=== PATIENT | female | born 1995 | race Caucasian/White ===

== ENCOUNTER 2016-11-29 10:26 | Emergency (ER) | payer BC ==
--- NOTE | 2016-11-29 12:42 | UC ---
Respiratory Complaint HPI - HPI Summary HPI Summary: PATIENT IS AN OTHERWISE HEALTHY 21YO F WHO PRESENTS TODAY WITH CC OF SORE THROAT , SCHAEFER AND BODY ACHES. PATIENT STATES ON SUNDAY SHE AWOKE WITH SORE THROAT, THEN YESTERDAY HAD A HEADACHE AND FELT LIGHT HEADED. DEVELOPED A FEVER AT AROUND 7: 00PM. HAD A FEVER OF 102.0 F AT 0600. TOOK 1 TAB ES TYLENOL. BILATERAL EAR PAIN WELL. 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 FLU SYMPTOMS HAVE CONTINUALLY BECOME WORSE SINCE 2 DAYS AGO. NOTHING MAKES HER SYMPTOMS BETTER OR WORSE AND SHE HAS ONLY TRIED TYLENOL FOR RELIEF. - History of Current Complaint Chief Complaint: UCRespiratory Stated Complaint: EAR PAIN, FEVER Time Seen by Provider: 11/29/16 12:40 Hx Obtained From: Patient Hx Last Menstrual Period: ON BCP. LAST PERIOD WAS 1 MONTH AGO ?: No Onset/Duration: Sudden Onset Timing: Constant Severity Initially: Mild Severity Currently: Mild Pain Intensity: 5 Pain Scale Used: 0-10 Numeric Character: Cough: Nonproductive Aggravating Factors: Deep Breaths, Recumbent Position Alleviating Factors: Upright Position Associated Signs And Symptoms: Positive: Fever, Chills, Pleuritic Chest Pain, URI, Nasal Congestion, Sinus Discomfort - Risk Factors Pulmonary Embolism Risk Factors: Negative Cardiac Risk Factors: Negative Pseudomonas Risk Factors: Negative Tuberculosis Risk Factors: Negative - Allergies/Home Medications Allergies/Adverse Reactions: Allergies Allergy/AdvReac Type Severity Reaction Status Date / Time No Known Allergies Allergy Verified 11/29/16 12:04 Home Medications: Home Medications Acetaminophen [Acetaminophen Extra Stren] 1 tab PO TID PRN 11/29/16 [History Confirmed 11/29/16] PMH/Surg Hx/FS Hx/Imm Hx Previously Healthy: Yes Endocrine History Of: Denies: Diabetes, Thyroid Disease Cardiovascular History Of: Denies: Cardiac Disorders, Hypertension Respiratory History Of: Denies: COPD, Asthma GI/ History Of: Denies: Ulcer - Surgical History Surgical History: None - Family History Known Family History: Positive: None Family History: NON CONTRIBUTORY - Social History Occupation: Employed Full-time Lives: With Family Alcohol Use: Occasionally Substance Use Type: None Smoking Status (MU): Never Smoked Tobacco - Immunization History Most Recent Influenza Vaccination: NOT THIS YEAR Review of Systems Constitutional: Fever, Chills, Fatigue Skin: Negative ENT: Sore Throat, Ear Ache, Nasal Discharge Respiratory: Shortness Of Breath, Cough Genitourinary: Negative Motor: Negative Neurovascular: Negative Musculoskeletal: Myalgia Neurological: Headache Psychological: Negative All Other Systems Reviewed And Are Negative: Yes Physical Exam Triage Information Reviewed: Yes Appearance: Well-Appearing, No Pain Distress, Well-Nourished Vital Signs: Initial Vital Signs Temp 99.6 F 11/29/16 12:06 Pulse 132 11/29/16 12:06 Resp 18 11/29/16 12:06 BP 127/68 11/29/16 12:06 Pulse Ox 99 11/29/16 12:06 Vital Signs Reviewed: Yes Eye Exam: Normal Eyes: Positive: Conjunctiva Clear ENT: Positive: Pharynx normal Neck exam: Normal Neck: Positive: Supple, Nontender Respiratory Exam: Normal Respiratory: Positive: Chest non-tender Cardiovascular Exam: Normal Cardiovascular: Positive: RRR Musculoskeletal Exam: Normal Musculoskeletal: Positive: Strength Intact Neurological Exam: Normal Neurological: Positive: Alert Psychological: Positive: Normal Response To Family Skin Exam: Normal UC Diagnostic Evaluation - Laboratory O2 Sat by Pulse Oximetry: 99 Respiratory Course/Dx - Course Course Of Treatment: STREP NEGATIVE. FLU WAS NOT RUN. I EXPLAINED TO PATIENT IT WOULD NOT CHANGE THE COURSE OF TREATMENT D/T LENGTH OF SYMPTOMS. SHE AGREES AND WOULD JUST LIKE A NOTE FOR WORK. NOTE GIVEN FOR 2 DAYS OFF AND RETURN ON SUNDAY. PATIENT STABLE AND OK FOR DISCHARGE. - Differential Dx/Diagnosis Differential Diagnosis/HQI/PQRI: Asthma, Bronchitis, Lower Resp Infection, Sinusitis Provider Diagnoses: VIRAL ILLNESS Discharge - Discharge Plan Condition: Stable Disposition: HOME Patient Education Materials: Viral Syndrome (ED) Forms: *Work Release Referrals: No Primary Care Phys,NOPCP [Primary Care Provider] - Additional Instructions: Drink plenty of fluids. A humidifier in the home can help with congestion during the colder months. If your symptoms fail to improve or worsen, please call your primary care provider, come back to urgent care or the emergency room. Rest. Fluids. Tylenol for temps > 100.5
[2016-11-29 13:40] VITALS: BP 130/66
== END 2016-11-29 13:31 | disposition home or self-care (01) ==
LOC: UCEAST 10:26
DX: J02.9 Acute pharyngitis, unspecified (principal); R51 Headache; R52 Pain, unspecified; R50.9 Fever, unspecified; R42 Dizziness and giddiness
CPT/HCPCS: 87651; 99211; G0463

== ENCOUNTER 2016-12-02 13:00 | Emergency (ER) | payer BC ==
[2016-12-02 13:13] VITALS: BP 118/78
--- NOTE | 2016-12-02 13:24 | UC ---
General HPI - HPI Summary HPI Summary: Patient was seen 3 days ago for ear pain and fever. Was given a note to stay homr from work, is here to have a note stating she is ok to return to work. - History of Current Complaint Chief Complaint: UCMedRefill Stated Complaint: RET'N TO [facility] NOTE Time Seen by Provider: 12/02/16 13:03 Hx Obtained From: Patient Onset/Duration: Sudden Onset, Lasting Days Current Severity: None - Allergy/Home Medications Allergies/Adverse Reactions: Allergies Allergy/AdvReac Type Severity Reaction Status Date / Time No Known Allergies Allergy Verified 11/29/16 12:04 PMH/Surg Hx/FS Hx/Imm Hx Previously Healthy: Yes Endocrine History Of: Denies: Diabetes, Thyroid Disease Cardiovascular History Of: Denies: Cardiac Disorders, Hypertension Respiratory History Of: Denies: COPD, Asthma GI/ History Of: Denies: Ulcer - Surgical History Surgical History: None - Family History Known Family History: Positive: None Family History: NON CONTRIBUTORY - Social History Alcohol Use: Occasionally Substance Use Type: None Smoking Status (MU): Never Smoked Tobacco - Immunization History Most Recent Influenza Vaccination: NOT THIS YEAR Review of Systems Constitutional: Negative Skin: Negative Eyes: Negative ENT: Negative Respiratory: Negative Cardiovascular: Negative Gastrointestinal: Negative Genitourinary: Negative Motor: Negative Neurovascular: Negative Musculoskeletal: Negative Neurological: Negative Psychological: Negative All Other Systems Reviewed And Are Negative: Yes Physical Exam Triage Information Reviewed: Yes Appearance: Well-Appearing, No Pain Distress, Well-Nourished Vital Signs: Initial Vital Signs Temp 97.8 F 12/02/16 13:08 Pulse 88 12/02/16 13:08 Resp 16 12/02/16 13:08 BP 118/78 12/02/16 13:08 Pulse Ox 96 12/02/16 13:08 Vital Signs Reviewed: Yes Eye Exam: Normal Eyes: Positive: Conjunctiva Clear ENT: Positive: Hearing grossly normal, Pharynx normal, TM red Dental Exam: Normal Neck exam: Normal Neck: Positive: Supple, Nontender, No Lymphadenopathy Respiratory Exam: Normal Respiratory: Positive: Chest non-tender, Lungs clear, Normal breath sounds Cardiovascular Exam: Normal Cardiovascular: Positive: RRR, No Murmur, Pulses Normal Abdominal Exam: Normal Abdomen Description: Positive: Nontender, No Organomegaly, Soft Bowel Sounds: Positive: Present Musculoskeletal Exam: Normal Musculoskeletal: Positive: Strength Intact, ROM Intact, No Edema Neurological Exam: Normal Neurological: Positive: Alert Psychological Exam: Normal Skin Exam: Normal Course/Dx - Course Course Of Treatment: hx obtained, exam performed, meds reveiwed and notes freveiwed from last visit. return to work paperwork filled out for job facility - Differential Dx - Multi-Symptom Provider Diagnoses: ear infection follow up Discharge - Discharge Plan Condition: Stable Disposition: HOME Forms: *Work Release Referrals: No Primary Care Phys,NOPCP [Primary Care Provider] - Additional Instructions: FOllow up with any residual symptoms
== END 2016-12-02 13:40 | disposition home or self-care (01) ==
LOC: UCEAST 13:00
DX: H66.90 Otitis media, unspecified, unspecified ear (principal)
CPT/HCPCS: 99211; G0463

== ENCOUNTER 2017-01-31 20:11 | Emergency (ER) | payer BC ==
--- NOTE | 2017-01-31 21:28 | RAD ---
INDICATION: Head injury. COMPARISON: There are no prior studies available for comparison. TECHNIQUE: Contiguous axial sections of the brain were obtained from the skull base to the vertex without contrast. FINDINGS: There is asymmetry in the lateral ventricles and a prominent cisterna magna most consistent with normal variation. There is a CSF density lesion present at the left temporal lobe tip measuring 3.9 x 2.7 cm in size most consistent with an arachnoid cyst. No other focal abnormalities or mass effect are seen. There is no evidence for hemorrhage. No significant focal osseous abnormality is seen. The visualized portion of the paranasal sinuses and mastoid air cells appear clear. IMPRESSION: 1. NO EVIDENCE FOR ACUTE INTRACRANIAL ABNORMALITY. 2. ARACHNOID CYST AT THE LEFT TEMPORAL LOBE TIP.
--- NOTE | 2017-01-31 21:59 | ED ---
Head Injury - HPI Summary HPI Summary: 21F presents with head injury today. She was working out when she slipped backwards and hit her head on the wall. She admits to posterior head pain and neck pain. She says she may have LOC. She admits to nausea but denies any vomiting. She denies any visual changes. She is more tired than normal. She had a head injury two months ago that she never followed up on. She denies any history of migraines. - History Of Current Complaint Chief Complaint: EDHeadInjury Stated Complaint: FALL/HEAD INJURY,HEAD AND NECK PAIN Time Seen by Provider: 01/31/17 20:45 Hx Last Menstrual Period: ON BCP. LAST PERIOD WAS 1 MONTH AGO Pain Intensity: 5 - Allergies/Home Medications Allergies/Adverse Reactions: Allergies Allergy/AdvReac Type Severity Reaction Status Date / Time No Known Allergies Allergy Verified 11/29/16 12:04 PMH/Surg Hx/FS Hx/Imm Hx Endocrine/Hematology History: Denies: Hx Diabetes, Hx Thyroid Disease Cardiovascular History: Denies: Hx Hypertension Respiratory History: Denies: Hx Asthma, Hx Chronic Obstructive Pulmonary Disease (COPD) GI History: Denies: Hx Ulcer Infectious Disease History: No Infectious Disease History: Denies: Hx Clostridium Difficile, Hx Hepatitis, Hx Human Immunodeficiency Virus (HIV), Hx of Known/Suspected MRSA, Hx Shingles, Hx Tuberculosis, Hx Known/ Suspected VRE, Hx Known/Suspected VRSA, History Other Infectious Disease, Traveled Outside the in Last 30 Days - Family History Known Family History: Positive: None, Other - migraines Family History: NON CONTRIBUTORY - Social History Alcohol Use: Occasionally Substance Use Type: Reports: None Smoking Status (MU): Never Smoked Tobacco Review of Systems Negative: Fever Negative: Chest Pain Negative: Shortness Of Breath Positive: Nausea. Negative: Vomiting Positive: Headache All Other Systems Reviewed And Are Negative: Yes Physical Exam Triage Information Reviewed: Yes Vital Signs On Initial Exam: Initial Vitals Temp Pulse Resp BP Pulse Ox 96.4 F 88 18 140/74 100 01/31/17 20:26 01/31/17 20:26 01/31/17 20:26 01/31/17 20:26 01/31/17 20:26 Vital Signs Reviewed: Yes Appearance: Positive: Well-Appearing Skin: Positive: Warm, Dry Head/Face: Positive: Normal Head/Face Inspection, Other - no step off, raccoon eyes, figueroa sign Eyes: Positive: Normal, EOMI, TAYLOR, Conjunctiva Clear ENT: Positive: Normal ENT inspection, Pharynx normal, TMs normal Respiratory/Lung Sounds: Positive: Clear to Auscultation, Breath Sounds Present Cardiovascular: Positive: Normal, RRR Neurological: Positive: Sensory/Motor Intact, Alert, Oriented to Person Place, Time, CN Intact II-III, Finger to Nose - Hartline Coma Scale Best Eye Response: 4 - Spontaneous Best Motor Response: 6 - Obeys Commands Best Verbal Response: 5 - Oriented Coma Scale Total: 15 Diagnostics - Vital Signs Vital Signs Temp Pulse Resp BP Pulse Ox 01/31/17 20:47 96.4 F 82 18 138/74 99 01/31/17 20:26 96.4 F 88 18 140/74 100 - Laboratory Lab Statement: Any lab studies that have been ordered have been reviewed, and results considered in the medical decision making process. - CT brain CT Interpretation: No Acute Changes - IMPRESSION: 1. NO EVIDENCE FOR ACUTE INTRACRANIAL ABNORMALITY. 2. ARACHNOID CYST AT THE LEFT TEMPORAL LOBE TIP. CT Interpretation Completed By: Radiologist Head Injury Course/Dx Course Of Treatment: 21F presents with head injury today s/p falling backwards into a wall. She had unknown LOC. she is nausous but she denies any vomiting. normal neuro exam. discussed with mom and patient and would like a CT of head. neck nontender midline. tender left side of neck. CT head no acute trauma. gave zofran for nausea. patient understands and agrees with plan - Diagnoses Differential Diagnosis/HQI/PQRI: Concussion With LOC, Concussion Without LOC, Contusion, Intracranial Bleed Provider Diagnoses: Head injury Discharge - Discharge Plan Condition: Good Disposition: HOME Prescriptions: Ondansetron ODT TAB* [Zofran 4 MG Odt TAB*] 4 mg PO Q6H PRN #10 tab.odt PRN Reason: Nausea Patient Education Materials: Head Injury (ED) Referrals: Rhianna Jamison MD [Primary Care Provider] - Additional Instructions: Place ice on area as needed Take Tylenol or ibuprofen for headache every 6 hours Modify activities as tolerated Follow up with primary within 7 days Return to ED if develop vomiting, severe headache, change in behavior, or any new or worsening symptoms
[2017-01-31] MEDS ORDERED: Ondansetron ODT TAB* 4 MG PO ONE (22:22)
[2017-01-31 22:29] VITALS: BP 132/70
== END 2017-01-31 22:28 | disposition home or self-care (01) ==
LOC: ED 20:11
DX: S09.90XA Unspecified injury of head, initial encounter (principal); W19.XXXA Unspecified fall, initial encounter; Y93.9 Activity, unspecified; Y92.9 Unspecified place or not applicable; G93.0 Cerebral cysts
CPT/HCPCS: 70450; 99282; A9270-GY

== ENCOUNTER 2017-09-16 11:17 | Emergency (ER) | payer BC ==
[2017-09-16 13:11] VITALS: BP 142/77
[2017-09-16] MEDS ORDERED: Ibuprofen TAB* 600 MG PO ONE (13:48)
--- NOTE | 2017-09-16 14:28 | UC ---
Steve Perez Stephanie, scribed for Oscar Montgomery MD on 09/16/17 at 1417 . Respiratory Complaint HPI - HPI Summary HPI Summary: The pt is a 22 y/o F presenting to with c/o sinus pressure that began this yesterday morning upon waking up. Symptoms include body aches in the back and lower extremity, nasal congestion with clear mucus, cough and ear pain. The pt reports having a fever on 09/13/17, feeling better on 09/14/17, but having sinus pressure on 09/15/17. The pt denies wheezing, present sinus issues and present fever. The pt attempted to treat with Mucinex but had no relief. - History of Current Complaint Chief Complaint: UCRespiratory Stated Complaint: SINUS ISSUE Time Seen by Provider: 09/16/17 13:43 Hx Obtained From: Patient Hx Last Menstrual Period: 09/11/17 Timing: Constant Severity Currently: Moderate Pain Intensity: 7 Pain Scale Used: 0-10 Numeric Character: Cough: Nonproductive Aggravating Factors: Nothing Alleviating Factors: Nothing Associated Signs And Symptoms: Positive: Nasal Congestion, Sinus Discomfort. Negative: Fever - Allergies/Home Medications Allergies/Adverse Reactions: Allergies Allergy/AdvReac Type Severity Reaction Status Date / Time No Known Allergies Allergy Verified 09/16/17 13:09 PMH/Surg Hx/FS Hx/Imm Hx Previously Healthy: Yes - Denies prior medical history. - Surgical History Surgical History: None - Family History Known Family History: Positive: Other - migraines Family History: NON CONTRIBUTORY - Social History Occupation: Employed Part-time Lives: Alone Alcohol Use: Weekly Substance Use Type: None Smoking Status (MU): Never Smoked Tobacco - Immunization History Most Recent Influenza Vaccination: NOT THIS YEAR Review of Systems Constitutional: Negative Skin: Negative Eyes: Negative ENT: Ear Ache, Nasal Discharge - clear mucus, Sinus Congestion, Sinus Pain/ Tenderness Respiratory: Cough Cardiovascular: Negative Gastrointestinal: Negative Genitourinary: Negative Motor: Negative Neurovascular: Negative Musculoskeletal: Myalgia - back and lower extremity Neurological: Negative Psychological: Negative All Other Systems Reviewed And Are Negative: Yes Physical Exam Triage Information Reviewed: Yes Vital Signs: Initial Vital Signs Temp 98.3 F 09/16/17 13:03 Pulse 117 09/16/17 13:03 Resp 14 09/16/17 13:03 BP 142/77 09/16/17 13:03 Pulse Ox 100 09/16/17 13:03 Vital Signs Reviewed: Yes - Additional Comments General: Mildly ill-appearing, mild pain distress Skin: warm, color reflects adequate perfusion, dry Head: normal Eyes: EOMI, TAYLOR ENT: normal, TM nml. Posterior pharynx positive erythema Neck: supple, Pos anterior cervical lymphadenopathy. Respiratory: CTA, breath sounds present Cardiovascular: RRR Abdomen: soft, nontender Bowel: present Musculoskeletal: normal, strength/ROM intact Neurological: normal, sensory/motor intact, A&O x3 Psychological: affect/mood appropriate Diagnostic Evaluation - Laboratory O2 Sat by Pulse Oximetry: 100 Respiratory Course/Dx - Course Course Of Treatment: Medications reviewed. - Differential Dx/Diagnosis Provider Diagnoses: INFLUENZA Discharge - Discharge Plan Condition: Stable Disposition: HOME Prescriptions: Oseltamivir CAP* [Tamiflu CAP*] 75 mg PO BID #10 cap Patient Education Materials: Influenza (ED) Forms: *Work Release Referrals: Rhianna Jamison MD [Primary Care Provider] - Additional Instructions: FOLLOW UP WITH YOUR DOCTOR. GET RECHECKED FOR ANY WORSENING OF YOUR CONDITION OR QUESTIONS OR CONCERNS. The documentation as recorded by the Steve trammell Stephanie accurately reflects the service I personally performed and the decisions made by me, Oscar Montgomery MD.
== END 2017-09-16 14:28 | disposition home or self-care (01) ==
LOC: UCEAST 11:17
DX: J11.1 Influenza due to unidentified influenza virus with other respiratory manifestations (principal)
CPT/HCPCS: 87502; 99212; A9270-GY; G0463

== ENCOUNTER 2019-01-30 15:38 | Inpatient (IN) | payer OTHER ==
[2019-01-30] MEDS ORDERED: Nalbuphine* 10 MG/ML 1 ML VIAL IV ONE (17:06)
[2019-01-30] MEDS ORDERED: Buffered Lidocaine 1% SYRIN* 1 ML/SYRINGE INTRADERM ONE (17:06)
[2019-01-30] MEDS ORDERED: Promethazine INJ(RESTRICTED)* 25 MG/ML 1 ML VIAL IV ONE (17:06)
[2019-01-30] MEDS ORDERED: Lactated Ringers 1000 ML Bag* 1,000 ML IV ONE ×2 (17:06→23:33)
--- NOTE | 2019-01-30 17:17 | HP ---
General Information - Reason for Visit Pt reports LOF and ctx since noon today. -VB, +FM. - General Information Maternal Age: 23 Grav: 1 Para: 0 SAB: 0 IEA: 0 Estimated Due Date: 01/26/19 Determined By: LMP Gestational Age in Weeks/Days: 40.4 Maternal Blood Type and Rh: O Positive - Results this Serology/RPR Result: Non-Reactive Rubella Result: Non-Immune HBsAg Result: Negative HIV Result: Negative GBS Culture Result: Negative Past Medical History Pertinent Past Medical History: See Records - scoliosis Pertinent Past Surgical History: None Pertinent Family History: See Records - high chol, CVD, DM, Bladder CA - Antepartal Records Antepartal Records: Reviewed, Complicated by: - anemia, BMI 30.6 Review of Systems Constitutional: Uncomfortable Respiratory: Shortness of Breath: No Gastrointestinal: No Nausea/Vomiting, Normal Bowel Movement Genitourinary: Leaking Fluid, No Dysuria, No Bleeding Musculoskeletal: Back Pain, Contractions, Pressure Neurological: No Headache, No Visual Changes Movement: Normal Exam Allergies/Adverse Reactions: Allergies No Known Allergies Allergy (Verified 01/30/19 16:36) T:98.5, P: 90, R:22, BP: 128/91, O2:100% Lab Values - Entire Visit: Laboratory Tests 01/30/19 16:00 Vag Amniotic Fld Detect Positive - Measurements Height: 5 ft 3 in Weight: 190 lb Weight in lbs: [phone] Body Mass Index (BMI): 33.6 Pre- Weight: 175 lb Weight Gained This : 15 lbs and 0 ozs - Exam Breast: Breast Exam Deferred CVA: No CVA Tenderness Extremities: No Edema Heart: Normal Rhythm/Heart Sounds HEENT: No Significant Findings Lungs: Clear Bilaterally Rectal: Rectal Exam Deferred Reflexes: DTR 2+ Thyroid: No Thyromegaly - Abdominal Exam Abdomen Exam: Non-Tender, Fundal Height Consistent with Dates - Ultrasound/Biophysical Profile Ultrasound Status: Not Done Targeted Exam Findings Estimated Weight: 7lbs 9oz Cervical Exam: 4cm Effacement: 90% Station: -1 Presenting Part: Vertex Membrane Status: Bulging - ROM plus positive Amniotic Fluid Evaluation: Positive ROM Plus Bleeding/Discharge: None EFM Findings - External Monitor Findings Baseline Heart Rate: 150 External Monitor Findings: Accelerations Present, No Pattern of Variable or Late Decelerations, Variability Moderate, Baseline Stable Contractions: Regular, Moderate, 45-90 Seconds Contraction Frequency: 5-6 Assessment/Plan - Assessment 23 y.o. , SROM, active labor - Plan Plan: Admit - Anticipate Vaginal Delivery - Date/Time of Admission Date of Admission: 01/30/19 Time of Admission: 15:00
[2019-01-30 17:41] LABS: ABS Basophils 0.1 10^3/ul (0-0.2); ABS Eosinophils 0.1 10^3/ul (0-0.6); ABS Lymphocytes 1.3 10^3/ul (1.0-4.8); ABS Monocytes 0.6 10^3/ul (0-0.8); ABS Neutrophils 7.7 10^3/ul (1.5-7.7); Eosinophil % 0.8 %; Hematocrit 38 % (35-47); Hemoglobin 12.8 g/dL (12.0-16.0); Lymphocyte % 13.6 %; Mean Corpuscular HGB Conc 34 g/dL (31-36); Mean Corpuscular Hemoglobin 30 pg (27-31); Mean Corpuscular Volume 87 fL (80-97); Mean Platelet Volume 10.6 fL (7.4-10.4); Nucleated Red Blood Cells % 0.1; Platelet Count 168 10^3/uL (150-450); Red Blood Count 4.33 10^6 /uL (3.70-4.87); Red Cell Distribution Width 16 % (10-15); White Blood Count 9.8 10^3/uL (3.5-10.8)
[2019-01-30] MEDS ORDERED: Lactated Ringers 1000 ML Bag* 1,000 ML IV SCH ×2 (18:00→23:45)
--- NOTE | 2019-01-30 20:49 | PN ---
Progress Note - Progress Note Date of Service: 01/30/19 SOAP: Subjective: Pt rested well with nubain and phenergan. Reports ctx further apart but still strong. Pt coping well but wants epidural. Objective: BP:113/61, P:75, R:18, T:99.1, FHR: 130bpm, + accels, -decels, moderate variability ctx q 5-8min. Cervix: 5.5/90/-1 AROM- thin meconium. Laboratory Tests 01/30/19 17:20 WBC 9.8 Hgb 12.8 Hct 38 Plt Count 168 Assessment: 23 y.o. , active labor 40w4d EGA Plan: 1) Anesthesia consult for epidural 2) Position changes for decent 3) Special care nurse notified of thin meconium
[2019-01-30] MEDS ORDERED: OBEPIDURAL* 250 ML EPIDURAL ONE (20:57)
[2019-01-30] MEDS ORDERED: Ondansetron ODT TAB* 4 MG SL PRN (21:51)
[2019-01-30] MEDS ORDERED: Ondansetron INJ* 2 MG/ML VIAL ONE (21:52)
[2019-01-30] MEDS ORDERED: Ondansetron ODT TAB* 4 MG ONE (21:55)
[2019-01-30] MEDS ORDERED: Phenylephrine 40 MCG/ML SYRINGE IV PUSH PRN ×2 (23:33)
[2019-01-30] MEDS ORDERED: Famotidine TAB* 20 MG PO PRN (23:33)
[2019-01-30] MEDS ORDERED: Sodium Citrate/Citric Acid* 15 ML UDC PO PRN (23:33)
[2019-01-30] MEDS ORDERED: Lactated Ringers 1000 ML Bag* 500 ML IV PRN ×2 (23:33)
[2019-01-30] MEDS ORDERED: OBEPIDURAL* 250 ML EPIDURAL SCH (23:45)
[2019-01-31] MEDS ORDERED: Glycerin ADULT SUPP PR PRN (00:16)
[2019-01-31] MEDS ORDERED: Acetaminophen TAB* 325 MG PO PRN (00:16)
[2019-01-31] MEDS ORDERED: fentaNYL* 50 MCG/ML 2 ML VIAL (100 MCG VIAL) ONE (00:19)
--- NOTE | 2019-01-31 00:20 | PROCNOTE ---
[facility] OB: Delivery Note - Delivery A Date of : 01/30/19 Time of : 23:54 Sex: Female Score 1 Minute: 8 Score 5 Minutes: 9 Gestational Age in Weeks and Days at Delivery: 40 Weeks and 4 Days Delivery Method: Spontaneous Vaginal Labor: Spontaneous Amniotic Fluid: Meconium Estimated Blood Loss: 200 Anesthesia/Analgesia: IM/IV, CEI for Labor Delivered By: Gaviota Hart - Nursery Level of Nursery: Regular/Bedside - Perineum Perineal Injury: Perineal Laceration, 1st Degree Perineal Repair: By Delivering Practioner - Events Delivery Events of Note Comment: Right nuchal arm
[2019-01-31] MEDS ORDERED: Lactated Ringers 1000 ML Bag* 1,000 ML IV SCH (01:00)
[2019-01-31] MEDS: Witch Hazel PAD* JAR TOPICAL PRN (04:24)
[2019-01-31] MEDS: Dibucaine 1% 28.35 GM TUBE PR PRN (04:24)
[2019-01-31] MEDS: Ibuprofen TAB* 600 MG PO PRN ×3 (04:43→20:13)
[2019-01-31] MEDS ORDERED: Simethicone TAB* 80 MG TAB.CHEW PO SCH (08:30)
[2019-01-31] MEDS: Docusate CAP* 100 MG PO SCH ×3 (10:15→20:14)
[2019-02-01] MEDS: Ibuprofen TAB* 600 MG PO PRN (06:15)
[2019-02-01 06:22] LABS: ABS Eosinophils 0.2 10^3/ul (0-0.6); ABS Lymphocytes 2.2 10^3/ul (1.0-4.8); ABS Monocytes 0.6 10^3/ul (0-0.8); ABS Neutrophils 6.3 10^3/ul (1.5-7.7); Eosinophil % 1.8 %; Hematocrit 37 % (35-47); Hemoglobin 12.3 g/dL (12.0-16.0); Lymphocyte % 23.5 %; Mean Corpuscular HGB Conc 34 g/dL (31-36); Mean Corpuscular Hemoglobin 30 pg (27-31); Mean Corpuscular Volume 88 fL (80-97); Mean Platelet Volume 10.6 fL (7.4-10.4); Platelet Count 156 10^3/uL (150-450); Red Blood Count 4.17 10^6 /uL (3.70-4.87); Red Cell Distribution Width 16 % (10-15); White Blood Count 9.2 10^3/uL (3.5-10.8)
[2019-02-01 08:35] VITALS: BP 105/65
[2019-02-01] MEDS ORDERED: Ferrous Gluconate TAB* 324 MG TAB PO SCH (09:00)
[2019-02-01] MEDS: Witch Hazel PAD* JAR TOPICAL PRN (09:04)
[2019-02-01] MEDS: Docusate CAP* 100 MG PO SCH (09:04)
[2019-02-01] MEDS: Dibucaine 1% 28.35 GM TUBE PR PRN (09:04)
[2019-02-01] MEDS ORDERED: Measles, Mumps,Rubella VACC* 0.5 ML/VIAL SUBCUT ONE (09:45)
== END 2019-02-01 12:05 | disposition home or self-care (01) | DRG 560 ==
LOC: MCHOBOUT 15:38 → MCHOB 16:27
PROVIDERS: ADMIT Midwife; ATTEND Midwife
PROC: 10E0XZZ Delivery of Products of Conception, External Approach (ICD-10-PCS; principal; 2019-01-30)
PROC: 0HQ9XZZ Repair Perineum Skin, External Approach (ICD-10-PCS; 2019-01-30)
DX: O48.0 Post-term pregnancy (principal); Z37.0 Single live birth; Z3A.40 40 weeks gestation of pregnancy; O70.0 First degree perineal laceration during delivery; O77.0 Labor and delivery complicated by meconium in amniotic fluid; O99.02 Anemia complicating childbirth; D64.9 Anemia, unspecified; O32.2XX0 Maternal care for transverse and oblique lie, not applicable or unspecified
CPT/HCPCS: 36415; 84112; 85025; 86850; 86900; 86901; A9270-GY; J2300; J2405; J2550; J3010

== ENCOUNTER 2019-03-27 18:30 | Emergency (ER) | payer OTHER ==
[2019-03-27 20:19] LABS: ABS Basophils 0.1 10^3/ul (0-0.2); ABS Eosinophils 0.1 10^3/ul (0-0.6); ABS Lymphocytes 1.5 10^3/ul (1.0-4.8); ABS Monocytes 0.7 10^3/ul (0-0.8); ABS Neutrophils 11.7 10^3/ul (1.5-7.7); Eosinophil % 0.7 %; Hematocrit 43 % (35-47); Hemoglobin 14.8 g/dL (12.0-16.0); Mean Corpuscular HGB Conc 34 g/dL (31-36); Mean Corpuscular Hemoglobin 30 pg (27-31); Mean Corpuscular Volume 87 fL (80-97); Mean Platelet Volume 10.6 fL (7.4-10.4); Nucleated Red Blood Cells % 0.1; Platelet Count 248 10^3/uL (150-450); Red Blood Count 4.97 10^6 /uL (3.70-4.87); Red Cell Distribution Width 13 % (10-15); White Blood Count 14.1 10^3/uL (3.5-10.8)
[2019-03-27 20:37] LABS: ALT 14 U/L (7-52); AST 19 U/L (13-39); Albumin 4.7 g/dL (3.2-5.2); Albumin/Globulin Ratio 1.5 (1-3); Alkaline Phosphatase 113 U/L (34-104); Anion Gap 8 mmol/L (2-11); BUN/Creatinine Ratio 26.5 (8-20); Blood Urea Nitrogen 18 mg/dL (6-24); C Reactive Protein 3.15 mg/L (<8.01); CO2 Carbon Dioxide 27 mmol/L (22-32); Calcium 9.8 mg/dL (8.6-10.3); Chloride 104 mmol/L (101-111); EGFR African American 127.6 (>60); EGFR Non-African American 105.4 (>60); Globulin 3.2 g/dL (2-4); Glucose 103 mg/dL (70-100); HCG Pregnancy < 0.60 mIU/mL; Potassium 3.3 mmol/L (3.5-5.0); Sodium 139 mmol/L (135-145); Total Protein 7.9 g/dL (6.4-8.9)
--- NOTE | 2019-03-27 22:20 | ED ---
GI/ HPI - HPI Summary HPI Summary: This pt is a 24 y/o female presenting to [facility] c/o right abd pain and right flank pain today. Pt reports her right sided abd pain began around 18:30 tonight. She states she had eaten pizza before her symptoms began and was feeling well throughout the night. Pt notes right after she ate she started to feel pain abruptly. Her pain has since localized to the right side of her flank. She notes nausea and vomiting. Currently reports feeling better. Pt recently had an IUD placed 1 week ago. Hx of scoliosis but denies any other PMHx. Pt denies abd surgeries. Pt had a baby 2 months ago. She states her balance has become worse and her tariff counsel is supposed to refer her to neuro but has not yet. - History of Current Complaint Chief Complaint: EDFlankPain Stated Complaint: BACK PAIN PER PT Hx Obtained From: Patient Hx Last Menstrual Period: 09/11/17 Onset/Duration: Started Hours Ago, Still Present Timing: Lasting Hours Current Severity: Mild Location of Pain: Flank - right Associated Signs and Symptoms: Positive: Nausea, Vomiting, Flank Pain - right, Abdominal Pain. Negative: Fever Additional Signs & Symptoms: Positive: IUD - placed 1 week ago Aggravating Factor(s): Nothing Alleviating Factor(s): Nothing - Allergy/Home Medications Allergies/Adverse Reactions: Allergies Allergy/AdvReac Type Severity Reaction Status Date / Time No Known Allergies Allergy Verified 01/30/19 16:36 PMH/Surg Hx/FS Hx/Imm Hx Endocrine/Hematology History: Denies: Hx Diabetes, Hx Thyroid Disease Cardiovascular History: Denies: Hx Hypertension Respiratory History: Denies: Hx Asthma, Hx Chronic Obstructive Pulmonary Disease (COPD) GI History: Denies: Hx Ulcer History: Denies: Hx Kidney Infection Psychiatric History: Denies: Hx Anxiety Infectious Disease History: No Infectious Disease History: Denies: Hx Clostridium Difficile, Hx Hepatitis, Hx Human Immunodeficiency Virus (HIV), Hx of Known/Suspected MRSA, Hx Shingles, Hx Tuberculosis, Hx Known/ Suspected VRE, Hx Known/Suspected VRSA, History Other Infectious Disease, Traveled Outside the [place] in Last 30 Days - Family History Known Family History: Positive: Other - migraines Family History: Mother with full hysterectomy - Social History Alcohol Use: None Alcohol Amount: Prior to Substance Use Type: Reports: None Smoking Status (MU): Never Smoked Tobacco Review of Systems Negative: Fever ENT: Negative Cardiovascular: Negative Positive: Abdominal Pain, Vomiting, Nausea Positive: flank pain - right All Other Systems Reviewed And Are Negative: Yes Physical Exam - Summary Physical Exam Summary: Appearance: Well-appearing, Well-nourished, lying in bed comfortably Skin: Warm, dry, no obvious rash Eyes: sclera anicteric, no conjunctival pallor ENT: mucous membranes moist, pharynx appears normal Neck: Supple, nontender Respiratory: Clear to auscultation, no signs of respiratory distress Cardiovascular: Normal S1, S2. No murmurs. Normal distal pulses in tibial and radial bilaterally. Abdomen: Soft, minimal RUQ tenderness with no guarding or rebound, normal active bowel sounds present Musculoskeletal: Normal, Strength/ROM Intact Neurological: A&Ox3, awake and alert, mentation is normal, speech is fluent and appropriate Psychiatric: affect is normal, does not appear anxious or depressed Triage Information Reviewed: Yes Vital Signs On Initial Exam: Initial Vitals Temp Pulse Resp BP Pulse Ox 95.5 F 98 18 150/87 100 03/27/19 18:33 03/27/19 18:33 03/27/19 18:33 03/27/19 18:33 03/27/19 18:33 Vital Signs Reviewed: Yes Diagnostics - Vital Signs Vital Signs Temp Pulse Resp BP Pulse Ox 03/27/19 20:08 98.5 F 80 16 110/65 97 03/27/19 18:33 95.5 F 98 18 150/87 100 - Laboratory Lab Results: Lab Results 03/27/19 03/27/19 03/27/19 Range/Units 19:51 19:52 19:52 WBC 14.1 H (3.5-10.8) 10^3/uL RBC 4.97 H (3.70-4.87) 10^6 /uL Hgb 14.8 (12.0-16.0) g/dL Hct 43 (35-47) % MCV 87 (80-97) fL MCH 30 (27-31) pg MCHC 34 (31-36) g/dL RDW 13 (10-15) % Plt Count 248 (150-450) 10^3/uL MPV 10.6 H (7.4-10.4) fL Neut % (Auto) 82.8 % Lymph % (Auto) 11.0 % [place] % (Auto) 5.1 % Eos % (Auto) 0.7 % Baso % (Auto) 0.4 % Absolute Neuts (auto) 11.7 H (1.5-7.7) 10^3/ul Absolute Lymphs (auto) 1.5 (1.0-4.8) 10^3/ul Absolute Monos (auto) 0.7 (0-0.8) 10^3/ul Absolute Eos (auto) 0.1 (0-0.6) 10^3/ul Absolute Basos (auto) 0.1 (0-0.2) 10^3/ul Absolute Nucleated RBC 0.0 10^3/ul Nucleated RBC % 0.1 Sodium 139 (135-145) mmol/L Potassium 3.3 L (3.5-5.0) mmol/L Chloride 104 (101-111) mmol/L Carbon Dioxide 27 (22-32) mmol/L Anion Gap 8 (2-11) mmol/L BUN 18 (6-24) mg/dL Creatinine 0.68 (0.51-0.95) mg/dL Est GFR ( Amer) 127.6 (>60) Est GFR (Non-Af Amer) 105.4 (>60) BUN/Creatinine Ratio 26.5 H (8-20) Glucose 103 H (70-100) mg/dL Lactic Acid 1.0 (0.5-2.0) mmol/L Calcium 9.8 (8.6-10.3) mg/dL Total Bilirubin 0.40 (0.2-1.0) mg/dL AST 19 (13-39) U/L ALT 14 (7-52) U/L Alkaline Phosphatase 113 H (34-104) U/L C-Reactive Protein 3.15 (<8.01) mg/L Total Protein 7.9 (6.4-8.9) g/dL Albumin 4.7 (3.2-5.2) g/dL Globulin 3.2 (2-4) g/dL Albumin/Globulin Ratio 1.5 (1-3) Beta HCG, Quant < 0.60 mIU/mL Result Diagrams: 03/27/19 19:52 03/27/19 19:52 Lab Statement: Any lab studies that have been ordered have been reviewed, and results considered in the medical decision making process. - Ultrasound No standard instances Ultrasound Interpretation Completed By: Radiologist Summary of Ultrasound Findings: Gallbladder US IMPRESSION: 1. There are echogenic calculi in the gallbladder lumen and nearly filling the gallbladder lumen consistent with cholelithiasis with no abnormal gallbladder wall thickening but there was a positive sonographic Su sign and therefore suspicious for acute cholecystitis. 2. There is borderline prominence of the common bile duct measuring 6.3 mm diameter but no visible choledocholithiasis to the extent visualized. Dr. Iraheta has reviewed this report. Re-Evaluation - Re-Evaluation First Eval Re-Evaluation Time: 01:09 Comment: Discussed US results with pt. Pt will be discharged home with follow up from surgery. GIGU Course/Dx - Course Assessment/Plan: Pt is a 24 y/o female presenting to [facility] c/o right abd pain and right flank pain today. Pt reports her right sided abd pain began around 18: 30 tonight. Her pain has localized to the right flank since then. Lab results unremarkable except for WBC of 14.1, potassium of 3.3. Gallbladder US shows 1. There are echogenic calculi in the gallbladder lumen and nearly filling the gallbladder lumen consistent with cholelithiasis with no abnormal gallbladder wall thickening but there was a positive sonographic Su sign and therefore suspicious for acute cholecystitis. 2. There is borderline prominence of the common bile duct measuring 6.3 mm diameter but no visible choledocholithiasis to the extent visualized. Pt will be discharged home with follow up from Dr. Abbasi, surgeon. She is advised to take Motrin for the pain. Return precautions were given. - Diagnoses Provider Diagnoses: Biliary colic Discharge - Sign-Out/Discharge Documenting (check all that apply): Patient Departure - Discharge home Patient Received Moderate/Deep Sedation with Procedure: No - Discharge Plan Condition: Good Disposition: HOME Patient Education Materials: Biliary Colic (ED), Gallstones (ED) Referrals: Traci Abbasi MD [Medical Doctor] - Additional Instructions: Contact Dr. Abbasi's office in the morning to make an appt for next week. They will go over things with you and I expect will recommend surgical removal of the gall bladder to prevent future problems. If you experience another episode you can try treating it at home with motrin, but if the pain is too strong or persistent just come back to the ED and we will take care of it. Avoiding large and fatty meals may help stave off another attack until you can get in for surgery. - Billing Disposition and Condition Condition: GOOD Disposition: Home - Attestation Statements Document Initiated by Shiva: Yes Documenting Scribe: Perla Polanco Provider For Whom Shiva is Documenting (Include Credential): Edenilson Iraheta MD Scribe Attestation: IPerla, scribed for Edenilson Iraheta MD on 03/29/19 at 0605. Scribe Documentation Reviewed: Yes Provider Attestation: The documentation as recorded by the Perla trammell accurately reflects the service I personally performed and the decisions made by me, Edenilson Iraheta MD Status of Scribe Document: Viewed
[2019-03-28 00:21] LABS: Urine Appearance Cloudy; Urine Bacteria Absent (Absent); Urine Bilirubin Negative (Negative); Urine Blood 2+ (Negative); Urine Color Yellow; Urine Glucose Negative (Negative); Urine Ketones Trace (Negative); Urine Nitrite Negative (Negative); Urine Protein Negative (Negative); Urine Red Blood Cell 1+(3-5/hpf) (Absent); Urine Squamous Epithelial Cell Present (Absent); Urine Urobilinogen Negative (Negative); Urine White Blood Cell Trace(0-5/hpf) (Absent)
[2019-03-28 01:24] VITALS: BP 115/67
[2019-03-28 13:56] LABS: Neisseria gonorrhoeae (GC) RNA Negative (Negative)
== END 2019-03-28 01:30 | disposition home or self-care (01) ==
LOC: ED 18:30
DX: K80.50 Calculus of bile duct without cholangitis or cholecystitis without obstruction (principal)
CPT/HCPCS: 36415; 76705; 80053; 81003; 81015; 83605; 83690; 84702; 85025; 86140; 87086; 87491; 87591; 99283

== ENCOUNTER 2019-05-20 07:25 | Day surgery (SDC) | payer OTHER ==
--- NOTE | 2019-05-12 13:27 | HP ---
AMENDED REPORT NOW INCLUDES DESIGNATED COSIGNER - ESIGNED BEFORE ADJUSTMENTS CC: Dr. Jamison, [place] * ADMISSION HISTORY AND PHYSICAL: DATE OF ADMISSION: 05/20/19 ATTENDING SURGEON: Dr. Stepan King * (MAEVE España, dictating). CHIEF COMPLAINT: Gallstones. HISTORY OF PRESENT ILLNESS: This is a 24-year-old generally healthy female who is approximately 3 months and who on 03/27/19 experienced epigastric abdominal pain. This seemed to occur after eating pizza and wings and began as pain in the interscapular area, which then moved to the right upper quadrant. It was associated with vomiting x1 and she presented to the ED. After a long wait in the waiting room, the pain had subsided and she required no further treatment. Her workup at that time did include an ultrasound showing multiple gallstones, normal gallbladder wall, but with a positive sonographic Su's sign. In addition, the common bile duct was measured at 6.3 mm. Her liver function tests at that time were essentially normal with the exception of mild elevation in alkaline phosphatase. Her white blood cell count was elevated at 14.1, her CRP was normal at 3. She was discharged. She was seen in the office by Dr. King on 03/31/19, at which time review of her history and diagnostic workup confirmed symptomatic cholelithiasis and he recommended cholecystectomy. She did have one additional episode of similar symptoms on 04/01/19, which subsided within 2 hours on her own at home. No interval symptoms. She is unsure about whether her urine was dark for a period of time. She understands the indications for surgery, the risks, benefits and alternatives and would like to proceed as scheduled with laparoscopic cholecystectomy. There is no known family history of gallbladder disease. PAST MEDICAL HISTORY: No significant chronic or active medical problems with the exception that she does have a history of scoliosis and has had some balance problems which worsened somewhat since her delivery 3 months ago. She does have a pending appointment with Neurology in August. PAST SURGICAL HISTORY: Her only previous surgery is wisdom tooth extraction. No problems with constipation is reported. CURRENT MEDICATIONS: None (she does have an IUD (Nelda) in place). DRUG ALLERGIES: None. FAMILY HISTORY: Negative for anesthesia problems, bleeding or clotting disorders. SOCIAL HISTORY: The patient is . She has 1 child at home, 3 months of age. She denies use of tobacco, drinks maybe 1 alcoholic drink per week and denies any other recreational drug use. REVIEW OF SYSTEMS: General: No recent constitutional symptoms or acute illnesses other than described in the HPI and past medical history above. She states that her weight overall has been stable, though she believes she has lost about 5 pounds since onset of the current illness. This is largely related to a more restricted diet. HEENT: No problems reported (she states that previous neurological consultation and imaging had revealed a benign arachnoid cyst). Cardiovascular: No chest pain, palpitations, history of heart murmur, or hypertension. Respiratory: No history of asthma, chronic cough, or shortness of breath. GI: As above per HPI. No lower GI symptoms. : No problems reported. SAS ANALYST: She is 3 months ; up- to-date for exams. Not lactating. No problems reported. Musculoskeletal: Scoliosis. Neurological : Balance problems, but no recent falls; neurology consult pending. PHYSICAL EXAMINATION GENERAL: Well-nourished, well-developed female, in no acute distress. VITAL SIGNS: Height 5 feet 3 inches, weight 162 pounds. Blood pressure 98/60, pulse 72, respirations 12. HEENT: Pupils equal and round, reactive. EOMs intact. No conjunctival pallor. No scleral icterus. Oropharynx: Teeth in good repair. No intraoral lesions. NECK: No lymphadenopathy, thyromegaly, or masses. LUNGS: Clear to auscultation. No rales or wheezes. HEART: Regular rate and rhythm. No murmur noted. BREASTS: Not examined. ABDOMEN: Soft, nontender to palpation. No palpable masses or organomegaly. GENITALIA: Not done. RECTAL: Not done. BACK: No spinous process or CVA tenderness. EXTREMITIES: No edema. NEUROLOGICAL: Grossly intact. SKIN: Warm and dry. No suspicious rashes or lesions noted. IMPRESSION: Symptomatic cholelithiasis. PLAN: Laparoscopic cholecystectomy. MAEVE ESPAÑA [id number]/[facility] #: [id number] TRACY
[~2019-05-20 07:25] MED LIST: Buffered Lidocaine 1% SYRIN* 1 ML/SYRINGE INTRADERM ONE; Lactated Ringers 1000 ML Bag* 1,000 ML IV SCH
[2019-05-20] MEDS ORDERED: ceFAZolin 2 GM in NS PREMIX(*) 2 GM/100 ML BAG IVPB ONE (07:53)
[2019-05-20] MEDS ORDERED: Bupivacaine 0.25% EPI 200,000* 30 ML SDV ONE (09:09)
[2019-05-20] MEDS ORDERED: fentaNYL* 50 MCG/ML 2 ML VIAL (100 MCG VIAL) ONE ×3 (09:15→10:47)
[2019-05-20] MEDS ORDERED: Propofol* 10 MG/ML 20 ML BTL ONE (09:15)
[2019-05-20] MEDS ORDERED: Midazolam* 1 MG/ML 5 ML VIAL (5 MG) ONE (09:16)
[2019-05-20] MEDS ORDERED: Rocuronium* 10 MG/ML VIAL ONE (09:16)
[2019-05-20] MEDS ORDERED: Dexamethasone IV* 4 MG/ML 1 ML (4 MG) ONE (09:55)
[2019-05-20] MEDS ORDERED: Ondansetron INJ* 2 MG/ML VIAL ONE (10:13)
[2019-05-20] MEDS ORDERED: Ketorolac INJ* 30 MG/ML 1 ML VIAL ONE (10:13)
[2019-05-20] MEDS ORDERED: Ondansetron INJ* 2 MG/ML VIAL IV PRN (10:28)
[2019-05-20] MEDS ORDERED: DiMENhydriNATE IV* 50 MG/ML VIAL IV PUSH PRN (10:28)
[2019-05-20] MEDS ORDERED: oxyCODONE/Acetamin 5/325 MG* TAB PO PRN (10:28)
[2019-05-20] MEDS ORDERED: Naloxone* 0.4 MG/ML 1 ML VIAL IV PRN (10:28)
[2019-05-20] MEDS ORDERED: HYDROmorphone INJ1* 1 MG/ML SYRINGE IV PRN (10:28)
[2019-05-20] MEDS: fentaNYL* 50 MCG/ML 2 ML VIAL (100 MCG VIAL) IV PRN ×3 (10:56→11:36)
[2019-05-20] MEDS ORDERED: oxyCODONE/Acetamin 5/325 MG* TAB ONE (11:40)
[2019-05-20 12:24] VITALS: BP 130/78
--- NOTE | 2019-05-20 23:52 | OP ---
CC: Rhianna Jamison MD * DATE OF OPERATION: 05/20/19 - SDS DATE OF : 89 SURGEON: Dr. King. MAIL DELIVERER: MAEVE España ANESTHESIOLOGIST: Dr. Ramos. ANESTHESIA: General endotracheal. PRE-OP DIAGNOSIS: Symptomatic gallstones. POST-OP DIAGNOSIS: Symptomatic gallstones. OPERATIVE PROCEDURE: Laparoscopic cholecystectomy. ESTIMATED BLOOD LOSS: Minimal. IV FLUIDS: Crystalloids. SPECIMENS: Gallbladder. DRAINS: None. COMPLICATIONS: None. COUNTS: The instrument, needle, and sponge counts were correct. DESCRIPTION OF PROCEDURE: The patient was brought to the operating room and placed on the table supine. Sequential compression devices were placed on both lower extremities. General anesthesia was administered. Her abdomen was prepped and draped in usual sterile fashion and she received appropriate intravenous antibiotics. Local anesthetic was infiltrated into skin, soft tissue, prior to making each incision. A curvilinear infraumbilical incision was created and using an open technique, the peritoneal cavity was entered. A 12-mm trocar was placed, carbon dioxide was insufflated to a pressure of 15 mmHg. Under direct visualization, 5-mm trocars were placed, 1 in the subxiphoid position and 2 in the right upper quadrant. During placement of the initial trocar in the subxiphoid position, there was bleeding noted from the rectus muscle and therefore, the trocar was removed and observation revealed that there was a hematoma forming and therefore, a 0-Vicryl suture was passed using EndoClose device in order to achieve hemostasis in the muscle. Subsequently, the port was repositioned into the peritoneal cavity and the operation proceeded. The gallbladder was identified. It appeared to have chronic changes. This was grasped at the fundus and retracted cephalad. The infundibulum was retracted laterally and inferiorly and the peritoneum was incised medially and laterally along the infundibulum in order to dissect out the cystic duct and cystic artery , which were each doubly clipped and divided. The gallbladder was then grasped with the cystic duct stump and retracted cephalad and the gallbladder was freed from attachments to the liver using the hook cautery staying in an avascular plane. The gallbladder was retrieved and placed in the endoscopic retrieval bag and retrieved through the umbilical site. Hemostasis was assured, clips were noted to be intact. Irrigation was performed until clear. Ports removed under direct visualization, carbon dioxide was released. The umbilical site was closed with 0-Vicryl in a [id number] fashion to approximate the fascia. Skin incision was closed with 4-0 Monocryl in subcuticular fashion. Steri-Strips were applied. The patient was extubated uneventfully and transferred to recovery room in stable condition. [id number]/[facility] #: [id number] MTDRafael
== END 2019-05-20 13:19 | disposition home or self-care (01) ==
LOC: OR 07:25
PROVIDERS: ATTEND Surgery
DX: K80.10 Calculus of gallbladder with chronic cholecystitis without obstruction (principal); R26.89 Other abnormalities of gait and mobility
CPT/HCPCS: 81025; 88304; A9270-GY; J0690; J1100; J1885; J2250; J2405; J2704; J3010

== ENCOUNTER 2019-10-31 13:30 | Emergency (ER) | payer OTHER ==
--- OUTSIDE RECORDS SUMMARY | 2019-10-31 15:50 | XMS REPORT | Continuity of Care Document ---
:1995 External Reference #:[id number] Author Name Bryan Sesay M.D. Address [address] [place] [address] Care Team Providers Name Role Phone Rhianna Jamison M.D. - Family Care Team Information [employer] [phone] Medicine Mitch Hill M.D. - Neurology Care Team Information [employer] [phone] Problems Active Problems Provider Date Numbness of limbs Onset: Nystagmus Bryan Sesay M.D. Onset: 10/07/2019 Social History Type Date Description Comments Sex Unknown ETOH Use Occasionally consumes alcohol Tobacco Use Start: Unknown End: Patient is a former smoker Unknown Recreational Drug Use Denies Drug Use Smoking Status Reviewed: 10/07/19 Patient is a former smoker Allergies, Adverse Reactions, Alerts Active Allergies Reaction Severity Comments Date Seasonal Moderate 10/07/2019 Medications Description No Active Medications Immunizations Description No Information Available Vital Signs Description No Information Available Results Description No Information Available Procedures Description No Information Available Medical Devices Description No Information Available Encounters Description No Information Available Assessments Date Code Description Provider 10/07/2019 H51.8 Other specified disorders of binocular Bryan Sesay M.D. movement Plan of Treatment 10/07/2019 - Bryan Sesay M.D.H51.8 Other specified disorders of binocular movementComments:Smoking can increase the risk of developing or worsening any eye related disease, as well as affect your overall health. If you are a smoker , we strongly recommend that you quit.If you are not a smoker, we strongly recommend that you do not start. I SUSPECT SOME OF THE ABNORMALITIES I CAN SEE IN YOUR EYE MOVEMENTS IS RELATED TO THE OVERALL NEUROLOGIC SYMPTOMS THAT YOU ARE HAVING. THE EYES THEM-SELVES ARE HEALTHY.KEEP YOUR NEUROLOGY FOLLOW UP SCHEDULEDFollow up:As needed Functional Status Description No Information Available Mental Status Description No Information Available Referrals Description No Information Available
--- OUTSIDE RECORDS SUMMARY | 2019-10-31 15:50 | XMS REPORT | Continuity of Care Document ---
:1995 External Reference #:[id number] Author Name Roman Gonzalez NP (transmitted by agent of provider Indu Modi) Address [address] [facility] [address] [facility], [place] [address] Care Team Providers Name Role Phone Rhianna Jamison MD - Family Care Team Information Coronary Clinical Specialist [phone] Medicine Problems Active Problems Provider Date Counseling for sexually transmitted disease Sandy Martinez M.D. Onset: 2014 Acne Sandy Martinez M.D. Onset: 11/07/2014 Generalized hyperhidrosis Sandy Martinez M.D. Onset: 11/07/2014 Headache Roman Gonzalez NP Onset: 07/04/2019 Cerebral arachnoid cyst Roman Gonzalez NP Onset: 07/04/2019 Social History Type Date Description Comments Sex Unknown ETOH Use Drinks 3 Alcoholic Beverages Per Week Tobacco Use Start: Unknown Patient has never smoked Recreational Drug Use Denies Drug Use Smoking Status Reviewed: 10/01/19 Patient has never smoked Exercise Type/Frequency Does not exercise Allergies, Adverse Reactions, Alerts Description No Known Drug Allergies Medications Active Medications SIG Qnty Indications Ordering Provider Date Nelda 13.5mg Unknown IUD History Medications Hydrocodone-Acetaminophen 1 or 2 tablets 12tabs Amelia Elroy 05/12/2019 - 5-325mg Tablets by mouth every MD Perry Unknown 4-6 hours as needed for moderately severe pain Medications Administered in Office Medication SIG Qnty Indications Ordering Provider Date PPD Injection Dae Houston NP 08/15/2017 PPD Injection Nurse Visit C 04/21/2015 PPD Injection Unknown 07/28/2013 PPD Injection Unknown 07/22/2012 PPD Injection Unknown 07/08/2012 Immunizations CPT Code Status Date Vaccine Lot # [id number] Given 07/07/2015 Tdap - Tetanus/Diptheria/Acellular Pertussis [id number] 28990 Given 10/28/2012 Meningitis MCV4 MenACWY Meningococcal Conjugate Vaccine 36899 Given 10/28/2012 Meningitis MCV4 MenACWY Meningococcal Conjugate Vaccine 77116 Given 10/28/2012 Hepatitis A Vaccine Adult Dosage 88071 Given 07/10/2012 Flu Mist Vaccine, Live For Intranasal Use 13502 Given 10/24/2011 Flu Mist Vaccine, Live For Intranasal Use 23215 Given 10/24/2011 Hepatitis A Vaccine Pediatric/Adolescent Dosage 2 Dose Schedule 78004 Given 10/19/2010 Flu Mist Vaccine, Live For Intranasal Use 06129 Given 09/24/2009 Flu Mist Vaccine, Live For Intranasal Use 17497 Given 09/24/2009 Meningitis MCV4 MenACWY Meningococcal Conjugate Vaccine 30843 Given 09/24/2009 Meningitis MCV4 MenACWY Meningococcal Conjugate Vaccine 19720 Given 10/14/2008 Gardasil (HPV) 23035 Given 06/16/2008 Flu Mist Vaccine, Live For Intranasal Use 04631 Given 06/16/2008 Gardasil (HPV) 66539 Given 01/14/2008 Gardasil (HPV) 50442 Given 07/07/2006 Flu Mist Vaccine, Live For Intranasal Use 01913 Given 03/27/2006 Tdap - Tetanus/Diptheria/Acellular Pertussis 58149 Given 02/22/1999 DTaP Vaccine Younger Than 7 07871 Given 02/22/1999 Measles Mumps And Rubella MMR 97643 Given 02/22/1999 IPV/Poliomyelitis Immunization 14583 Given 08/27/1998 Varicella (Chicken Pox) Immunization 29806 Given 06/04/1995 Measles Mumps And Rubella MMR 57288 Given 06/04/1995 DTaP Vaccine Younger Than 7 68049 Given 06/04/1995 Hib Hboc Conjugate 4 Dose Schedule 25551 Given 1994 Hib Hboc Conjugate 4 Dose Schedule 90368 Given 1994 DTaP Vaccine Younger Than 7 94874 Given 1994 IPV/Poliomyelitis Immunization 38567 Given 1994 Hep B Pediatric/Adolescent 19149 Given 1994 IPV/Poliomyelitis Immunization 45160 Given 1994 DTaP Vaccine Younger Than 7 69472 Given 1994 Hib Hboc Conjugate 4 Dose Schedule 15310 Given 1994 IPV/Poliomyelitis Immunization 31535 Given 1994 DTaP Vaccine Younger Than 7 13462 Given 1994 Hib Hboc Conjugate 4 Dose Schedule 40770 Given 1994 Hep B Pediatric/Adolescent 50104 Given 1994 Hep B Pediatric/Adolescent Vital Signs Date Vital Result Comment 10/01/2019 9:09am Height 63 inches 5'3" Weight 164.00 lb Heart Rate 74 /min BP Systolic Sitting 110 mmHg BP Diastolic Sitting 74 mmHg Respiratory Rate 18 /min BMI (Body Mass Index) 29.0 kg/m2 08/04/2019 9:35am Height 63 inches 5'3" Weight 164.00 lb Heart Rate 78 /min BP Systolic 110 mmHg BP Diastolic 68 mmHg BMI (Body Mass Index) 29.0 kg/m2 Results Test Acquired Date Facility Test Result H/L Range Note Multiple 09/12/2019 [facility] CSF Oligoclonal 2 bands Sclerosis [address] [address] [phone] Serum Oligoclonal Bands 2 bands Oligoclonal Proteins Interpret 0 bands <4 1 CSF Immunoglobulin G Index 0.48 <=0.85 CSF Immunoglobulin G 2.2 mg/dL <=8.1 CSF Albumin 17.7 mg/dL <=27.0 CSF IgG/Albumin Ratio 0.12 <=0.21 CSF Immunoglobulin G Synthesis 0.00 mg/24h <=12 Serum Immunoglobulin G 1050 mg/dL 767 - 1590 Albumin, Serum 4240 mg/dL 2 Serum IgG/Albumin Ratio 0.25 <=0.40 3 Laboratory test 09/12/2019 [facility] Miscellaneous Test < pending> finding [address] [place] [address] [phone] Paranoeplas 09/12/2019 [facility] Paraneoplastic See Comment 4 Autoantibody, CSF [address] [place] [address] [phone] Amphiphysin Ab, CSF Negative titer <1:2 5 Agna-1, CSF Negative titer <1:2 6 Olga-1, CSF Negative titer <1:2 Reflex Added None. 7 Olga-2, CSF Negative titer <1:2 8 Olga-3, CSF Negative titer <1:2 9 CRMP-5-IgG, CSF Negative titer <1:2 10 Underwear Welter-Tr, CSF Negative titer <1:2 11 Underwear Welter-1, CSF Negative titer <1:2 12 Underwear Welter-2, CSF Negative titer <1:2 13 Vitamin B12 08/04/2019 [facility] Vitamin B12 368 pg/mL Normal 180-914 14 [address] F[address] [place] [address] [phone] Folic Acid (Folate) 12.07 ng/mL >3.99 Laboratory test 08/04/2019 [facility] Methylmalonic 0.16 <= 0.40 [address] Acid Mma nmol/[place] [address] [phone] Homocysteine 7 mcmol/L 16 Nuclear AB (Susana) By Ifa Igg <1:80 (Negative) 17 Ssa/SSB Abs Igg 08/04/2019 [facility] SS-A/Ro Antibody <0.2 U [address] [place] [address] [phone] SS-B/La Antibody <0.2 U 19 Paraneoplastic 08/04/2019 [facility] Paraneoplastic Ab See Comment [address] [place] [address] [phone] Anti-Neuronal Nuclear Ab Type1 Negative titer <1:240 Reflex Added None. 21 Anti-Neuronal Nuclear Ab Type2 Negative titer <1:240 22 Anti-Neuronal Nuclear Ab Type3 Negative titer <1:240 23 Anti-Glial/Neuronal Nuc Ab-1 A Negative titer <1:240 24 Purkinje Cell Cytoplasm Type 1 Negative titer <1:240 25 Purkinje Cell Cytoplasm Type 2 Negative titer <1:240 26 Purkinje Cell Cytoplasm Typ Tr Negative titer <1:240 27 Amphiphysin Antibody Negative titer <1:240 28 CRMP-5 IgG Antibody Negative titer <1:240 29 Anti-Striated Muscle Antibody Negative titer <1:120 30 Calcium Channel Binding Ab P/Q 0.00 nmol/L <=0.02 31 N Type Calcium Channel Binding 0.00 nmol/L <=0.03 32 AChR Ganglionic Neuronal Ab 0.00 nmol/L <=0.02 33 Voltage-Gated Potassium Chann 0.00 nmol/L <=0.02 34 Laboratory test 08/04/2019 [facility] Aso 200 Abnormal <200 [address] (Antistreptolysin IU/mL Iu/[place] [address] O) Titer IU/mL [phone] Protein 08/04/2019 [facility] Total Protein(Pep) 7.5 6.3 - Electrophoresis [address] g/dL 7.9 [place] [address] [phone] Albumin 3.9 g/dL 3.4-4.7 Alpha-1 Globulin 0.3 g/dL 0.1-0.3 Alpha-2 Globulin 0.9 g/dL 0.6-1.0 Beta Globulin 1.1 g/dL 0.7-1.2 Gamma Globulin 1.3 g/dL 0.6-1.6 Albumin/Globulin Ratio 1.08 Impression See Comment 36 CBC Auto 06/04/2019 [facility] White Blood 5.9 10^3/uL Normal 3.5-10.[address] [place] [address] [phone] Red Blood Count 4.99 10^6/uL High 3.70-4.87 Hemoglobin 15.2 g/dL Normal 12.0-16.0 Hematocrit 44 % Normal 35-47 Mean Corpuscular Volume 88 fL Normal 80-97 Mean Corpuscular Hemoglobin 31 pg Normal 27-31 Mean Corpuscular HGB Conc 35 g/dL Normal 31-36 Red Cell Distribution Width 13 % Normal 10-15 Platelet Count 239 10^3/uL Normal 150-450 37 Mean Platelet Volume 11.1 fL High 7.4-10.4 Abs Neutrophils 3.8 10^3/uL Normal 1.5-7.7 Abs Lymphocytes 1.6 10^3/uL Normal 1.0-4.8 Abs Monocytes 0.4 10^3/uL Normal 0-0.8 Abs Eosinophils 0.1 10^3/uL Normal 0-0.6 Abs Basophils 0.0 10^3/uL Normal 0-0.2 Abs Nucleated RBC 0.0 10^3/uL Granulocyte % 64.2 % Lymphocyte % 27.5 % Monocyte % 6.0 % Eosinophil % 1.8 % Basophil % 0.5 % Nucleated Red Blood Cells % 0.6 Comp Metabolic 06/04/2019 [facility] Sodium 140 mmol/L Normal 135-[address] [place] [address] [phone] Potassium 4.4 mmol/L Normal 3.5-5.0 Chloride 105 mmol/L Normal 101-111 Co2 Carbon Dioxide 28 mmol/L Normal 22-32 Anion Gap 7 mmol/L Normal 2-11 Glucose 85 mg/dL Normal 70-100 Blood Urea Nitrogen 12 mg/dL Normal 6-24 Creatinine 0.67 mg/dL Normal 0.51-0.95 BUN/Creatinine Ratio 17.9 Normal 8-20 Calcium 10.1 mg/dL Normal 8.6-10.3 Total Protein 7.1 g/dL Normal 6.4-8.9 Albumin 4.7 g/dL Normal 3.2-5.2 Globulin 2.4 g/dL Normal 2-4 Albumin/Globulin Ratio 2.0 Normal 1-3 Total Bilirubin 0.50 mg/dL Normal 0.2-1.0 Alkaline Phosphatase 100 U/L Normal 34-104 Alt 11 U/L Normal 7-52 Ast 11 U/L Low 13-39 Egfr Non- 107.2 >60 Egfr 129.8 >60 38 Laboratory test 06/04/2019 [facility] Lyme Screen Negative Negative finding [address]/ [place] [address] WB [phone] Erythrocyte Sed Rate 8 mm/Hr Normal 0-19 C Reactive Protein 2.55 mg/L Normal <8.01 Laboratory test 05/20/2019 [facility] Surgical SEE RESULT 39 finding [address] [facility] [place] [address] [phone] 1 The oligoclonal band assay detected 3 or fewer unique IgG bands in the CSF. This is a negative result. 2 REFERENCE VALUE 3200 - 3036 3 Test Performed by: [facility] [address] [place] [address] Window Trimmer Apprentice: Oscar Hickman M.D. Ph.D.; CLIA# [id number] 4 No informative autoantibodies were detected in the Paraneoplastic Evaluation. However, a negative result does not exclude neurological autoimmunity with or without associated neoplasia. Sensitivity and specificity of antibody testing are enhanced by testing both serum and CSF. 5 ADDITIONAL INFORMATION This test was developed and its performance characteristics determined by [facility] in a manner consistent with CLIA requirements. This test has not been cleared or approved by the U.S. Food and Drug Administration. 6 ADDITIONAL INFORMATION This test was developed and its performance characteristics determined by [facility] in a manner consistent with CLIA requirements. This test has not been cleared or approved by the U.S. Food and Drug Administration. 7 ADDITIONAL INFORMATION This test was developed and its performance characteristics determined by [facility] in a manner consistent with CLIA requirements. This test has not been cleared or approved by the U.S. Food and Drug Administration. 8 ADDITIONAL INFORMATION This test was developed and its performance characteristics determined by [facility] in a manner consistent with CLIA requirements. This test has not been cleared or approved by the U.S. Food and Drug Administration. 9 ADDITIONAL INFORMATION This test was developed and its performance characteristics determined by [facility] in a manner consistent with CLIA requirements. This test has not been cleared or approved by the U.S. Food and Drug Administration. 10 ADDITIONAL INFORMATION This test was developed and its performance characteristics determined by [facility] in a manner consistent with CLIA requirements. This test has not been cleared or approved by the U.S. Food and Drug Administration. 11 ADDITIONAL INFORMATION This test was developed and its performance characteristics determined by [facility] in a manner consistent with CLIA requirements. This test has not been cleared or approved by the U.S. Food and Drug Administration. 12 ADDITIONAL INFORMATION This test was developed and its performance characteristics determined by [facility] in a manner consistent with CLIA requirements. This test has not been cleared or approved by the U.S. Food and Drug Administration. 13 ADDITIONAL INFORMATION This test was developed and its performance characteristics determined by [facility] in a manner consistent with CLIA requirements. This test has not been cleared or approved by the U.S. Food and Drug Administration. Test Performed by: [facility] [place] [address] Window Trimmer Apprentice: Oscar Hickman M.D. Ph.D.; CLIA# [id number] 14 Normal Range 180 to 914 Indeterminate Range 145 to 180 Deficient Range <145 15 ADDITIONAL INFORMATION This test was developed and its performance characteristics determined by [facility] in a manner consistent with CLIA requirements. This test has not been cleared or approved by the U.S. Food and Drug Administration. Test Performed by: [facility] - [address] [address] Window Trimmer Apprentice: Oscar Hickman M.D. Ph.D.; CLIA# [id number] 16 REFERENCE VALUE <=13 (Fasting) ADDITIONAL INFORMATION This test was developed and its performance characteristics determined by [facility] in a manner consistent with CLIA requirements. This test has not been cleared or approved by the U.S. Food and Drug Administration. Test Performed by: [facility] - [address] [address] Window Trimmer Apprentice: Oscar Hickman M.D. Ph.D.; CLIA# [id number] 17 <1:80 (Negative) REFERENCE VALUE <1:80 (Negative) Test Performed by: [facility] [place] [address] Window Trimmer Apprentice: Oscar Hickman M.D. Ph.D.; CLIA# [id number] 18 REFERENCE VALUE <1.0 (Negative) 19 REFERENCE VALUE <1.0 (Negative) Test Performed by: [facility] [place] [address] Window Trimmer Apprentice: Oscar Hickman M.D. Ph.D.; CLIA# [id number] 20 No informative autoantibodies were detected in the Paraneoplastic Evaluation. However, a negative result does not exclude neurological autoimmunity with or without associated neoplasia. Sensitivity and specificity of antibody testing are enhanced by testing both serum and CSF. 21 ADDITIONAL INFORMATION This test was developed and its performance characteristics determined by [facility] in a manner consistent with CLIA requirements. This test has not been cleared or approved by the U.S. Food and Drug Administration. 22 ADDITIONAL INFORMATION This test was developed and its performance characteristics determined by [facility] in a manner consistent with CLIA requirements. This test has not been cleared or approved by the U.S. Food and Drug Administration. 23 ADDITIONAL INFORMATION This test was developed and its performance characteristics determined by [facility] in a manner consistent with CLIA requirements. This test has not been cleared or approved by the U.S. Food and Drug Administration. 24 ADDITIONAL INFORMATION This test was developed and its performance characteristics determined by [facility] in a manner consistent with CLIA requirements. This test has not been cleared or approved by the U.S. Food and Drug Administration. 25 ADDITIONAL INFORMATION This test was developed and its performance characteristics determined by [facility] in a manner consistent with CLIA requirements. This test has not been cleared or approved by the U.S. Food and Drug Administration. 26 ADDITIONAL INFORMATION This test was developed and its performance characteristics determined by [facility] in a manner consistent with CLIA requirements. This test has not been cleared or approved by the U.S. Food and Drug Administration. 27 ADDITIONAL INFORMATION This test was developed and its performance characteristics determined by [facility] in a manner consistent with CLIA requirements. This test has not been cleared or approved by the U.S. Food and Drug Administration. 28 ADDITIONAL INFORMATION This test was developed and its performance characteristics determined by [facility] in a manner consistent with CLIA requirements. This test has not been cleared or approved by the U.S. Food and Drug Administration. 29 ADDITIONAL INFORMATION This test was developed and its performance characteristics determined by [facility] in a manner consistent with CLIA requirements. This test has not been cleared or approved by the U.S. Food and Drug Administration. 30 ADDITIONAL INFORMATION This test was developed and its performance characteristics determined by [facility] in a manner consistent with CLIA requirements. This test has not been cleared or approved by the U.S. Food and Drug Administration. Test Performed by: [facility] - [address] [address] Window Trimmer Apprentice: Oscar Hickman M.D. Ph.D.; CLIA# [id number] 31 ADDITIONAL INFORMATION This test was developed and its performance characteristics determined by [facility] in a manner consistent with CLIA requirements. This test has not been cleared or approved by the U.S. Food and Drug Administration. 32 ADDITIONAL INFORMATION This test was developed and its performance characteristics determined by [facility] in a manner consistent with CLIA requirements. This test has not been cleared or approved by the U.S. Food and Drug Administration. 33 ADDITIONAL INFORMATION This test was developed and its performance characteristics determined by [facility] in a manner consistent with CLIA requirements. This test has not been cleared or approved by the U.S. Food and Drug Administration. 34 ADDITIONAL INFORMATION This test was developed and its performance characteristics determined by [facility] in a manner consistent with CLIA requirements. This test has not been cleared or approved by the U.S. Food and Drug Administration. 35 Normal values may vary with age, season and geographic area. Titers above upper limits may be indicative of infection, however only a two dilution rise in titer is required to be considered significant. ASO titer will usually rise above upper limits within one week of exposure, increase to peak levels at 3-5 weeks and return to baseline level at 6-12 twelve months. 36 RESULT: No apparent monoclonal protein on serum electrophoresis. Test Performed by: [facility] [place] [address] Window Trimmer Apprentice: Oscar Hickman M.D. Ph.D.; CLIA# [id number] 37 Platelet count confirmed by estimate 38 Because ethnic data is not always readily available, this report includes an eGFR for both -Americans and non- Americans. The National Kidney Disease Education Program (NKDEP) does not endorse the use of the MDRD equation for patients that are not between the ages of 18 and 70, are , have extremes of body size, muscle mass, or nutritional status, or are non- or non-. According to the National Kidney Foundation, irrespective of diagnosis, the stage of the disease is based on the level of kidney function: Stage Description GFR(mL/min/1.73 m(2)) 1 Kidney damage with normal or decreased GFR 90 2 Kidney damage with mild decrease in GFR 60-89 3 Moderate decrease in GFR 30-59 4 Severe decrease in GFR 15-29 5 Kidney failure <15 (or dialysis) 39 SEE RESULT BELOW Name: HIRENJUANITAZENOBIA : [address]: Stepan King MD Acct: [id number] Unit: [id number] AGE: 24 Location: OR Re05/20/19 SEX: F Status: [place] [facility] [place] SPEC: [id number] DIETER: 05/20/19- SUBM DR: Stepan King MD REQ: [id number] RECD: 05/20/19 STATUS: SOUT _ ORDERED: LEVEL 3 FINAL DIAGNOSIS Gallbladder, cholecystectomy: -- Chronic cholecystitis with cholelithiasis. CLINICAL HISTORY No history given PRE-OPERATIVE DIAGNOSIS GROSS DESCRIPTION The specimen is received in formalin labeled, Gallbladder, and consists of an 8.3 x 3.4 x 2.5 cm intact gallbladder. The serosa is glistening smooth chi-pink with rare focal fibromembranous adhesions. Within the lumen there are abundant yellow ovoid bosselated choleliths ranging from 0.1 cm to 0.3 cm in greatest dimension admixed with yellow viscid bile. The mucosa is reticulated chi-red with diffuse yellow stippling and the wall thickness averages 0.1 cm. Associate Store Manager sections, one cassette. Signed by and Reported on: Cameron Aly MD [address] END OF REPORT DEPARTMENT OF PATHOLOGY, [address] [place] [id number] Cameron Aly M.D. Director [facility] # [id number] Procedures Date Code Description Status 05/20/2019 33675 Laparoscopy Cholecystectomy Completed 05/20/2019 76315 Laparoscopy Cholecystectomy Completed Medical Devices Description No Information Available Encounters Type Date Location Provider Dx Diagnosis Office Visit 08/04/2019 [facility] Roman Knaake, DENTAL OFFICE ASSISTANT R25.1 Tremor, unspecified 9:30a Services Of Party Plan Sales Consultant R26.81 Unsteadiness on feet R51 Headache Office Visit 06/04/2019 8:00a [facility] Roman Knaake, R25.1 Tremor , Services Of Party Plan Sales Consultant DENTAL OFFICE ASSISTANT unspecified R26.81 Unsteadiness on feet Assessments Date Code Description Provider 10/01/2019 R25.1 Tremor, unspecified Roman Knaake, DENTAL OFFICE ASSISTANT 10/01/2019 R26.81 Unsteadiness on feet Roman Knaake, DENTAL OFFICE ASSISTANT 10/01/2019 H55.00 Unspecified nystagmus Roman Knaake, DENTAL OFFICE ASSISTANT 10/01/2019 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 Roman Knaake, DENTAL OFFICE ASSISTANT elsewhere 08/04/2019 R25.1 Tremor, unspecified Roman Knaake, DENTAL OFFICE ASSISTANT 08/04/2019 R26.81 Unsteadiness on feet Roman Knaake, DENTAL OFFICE ASSISTANT 08/04/2019 R51 Headache Roman Knaake, DENTAL OFFICE ASSISTANT 06/04/2019 R25.1 Tremor, unspecified Roman Knaake, DENTAL OFFICE ASSISTANT 06/04/2019 R26.81 Unsteadiness on feet Roman Knaake, DENTAL OFFICE ASSISTANT 05/28/2019 K80.20 Calculus of gallbladder without Bryan Sorenson MD cholecystitis without obstruction 05/20/2019 K80.10 Calculus of gallbladder with chronic MAEVE Parikh cholecystitis without obstruction 05/20/2019 K80.10 Calculus of gallbladder with chronic Stepna King MD, FACS cholecystitis without obstruction 05/12/2019 K80.20 Calculus of gallbladder without MAEVE Parikh cholecystitis without obstruction 05/12/2019 Z01.818 Encounter for other preprocedural MAEVE Parikh examination Plan of Treatment Future Appointment(s):12/31/2019 8:30 am - Roman Gonzalez, DENTAL OFFICE ASSISTANT at [facility]10/01/2019 - Roman Gonzalez, NPR25.1 Tremor, [id number] Unsteadiness on feetH55.00 Unspecified nystagmusReferral:Otoniel Woo MD, FgcrszshwatkeM63.81 Cerebellar ataxia in diseases classified elsewhereReferral:Roman Flores MD, NeurologyFollow up:3 MONTHS Functional Status Description No Information Available Mental Status Description No Information Available Referrals Refer to Dr Reason for Referral Status Appt Date Otoniel Woo MD Right eye Nystagmus Scheduled 10/07/[address] [place] [address] [phone] Roman Flores MD 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 Created [address] [facility] [id number] [place] [address] [phone] Reid Ramos MD LP for ataxia, dysmetria, absent DTR's no PA Sent 09/12 necessary ref# [id number] [place] [address] [phone]
[2019-10-31 16:03] VITALS: BP 107/59
--- NOTE | 2019-10-31 16:18 | UC ---
General HPI - HPI Summary HPI Summary: 4 days of nasal congestion. Today nasal congestion much worse, fever, chills and bodyaches started today. Had one episode of N/V/D this AM. Did not get the flu shot. Took tylenol sinus with minimal relief. Having a hard time breathing with the nasal congestion. Minimal cough. No SOB or CP. Nonsmoker. NO inhaler use. Meds; reviewed - History of Current Complaint Chief Complaint: UCRespiratory Stated Complaint: SINUS,BODYACHES,EAR PAIN Time Seen by Provider: 10/31/19 16:07 Hx Last Menstrual Period: 10/11/19 Pain Intensity: 2 - Allergy/Home Medications Allergies/Adverse Reactions: Allergies Allergy/AdvReac Type Severity Reaction Status Date / Time No Known Allergies Allergy Verified 10/31/19 16:03 Home Medications: Home Medications Acetaminophen TAB* [Tylenol TAB*] 650 mg PO Q4H PRN tab 02/01/19 [Rx Confirmed 10/31/19] Diphenhydra/Phenyleph/Acetamin [Cold & Flu Relief Multi-Sym Lq] 180 ml PO Q6HR 10/31/19 [History Confirmed 10/31/19] PMH/Surg Hx/FS Hx/Imm Hx Previously Healthy: Yes - Surgical History Surgical History: None Surgery Procedure, Year, and Place: 4 WISDOM TEETH. gallbladder 2019 - Family History Known Family History: Positive: Other - migraines Family History: Mother with full hysterectomy - Social History Alcohol Use: Occasionally Alcohol Amount: MAYBE 1-2 DRINKS MONTH Substance Use Type: None Smoking Status (MU): Never Smoked Tobacco Have You Smoked in the Last Year: No - Immunization History Most Recent Influenza Vaccination: NOT THIS YEAR Most Recent Pneumonia Vaccination: n/a Review of Systems All Other Systems Reviewed And Are Negative: Yes Constitutional: Positive: Fever, Chills ENT: Positive: Sore Throat, Nasal Discharge, Sinus Congestion Gastrointestinal: Positive: Vomiting, Diarrhea, Nausea Physical Exam Triage Information Reviewed: Yes Appearance: Other: - mildy ill appearing Vital Signs: Initial Vital Signs Temp 100.2 F 10/31/19 15:58 Pulse 83 10/31/19 15:58 Resp 16 10/31/19 15:58 BP 107/59 10/31/19 15:58 Pulse Ox 95 10/31/19 15:58 Vital Signs Reviewed: Yes ENT: Positive: Pharyngeal erythema, Nasal congestion, Nasal drainage, Tonsillar swelling, Other - clear fluid worse on right than left Neck: Positive: Supple, Nontender Respiratory: Positive: Lungs clear, Decreased breath sounds Cardiovascular: Positive: RRR, No Murmur Course/Dx - Course Course Of Treatment: This is a 24 yr old with congestion and flu like symptoms Flu: negative Nontoxic appearing Plan Your flu test was negative REcommend sudafed as directed for decongestant Recommend afrin nasal spray for 2-3 days, flonase nasal spray as directed until symptoms resolve Rest, fluids and ibuprofen as needed for pain/fever If symptoms persist or worsen, recommend follow up with your PCP or return to urgent care - Diagnoses Provider Diagnosis: Viral syndrome Discharge ED - Sign-Out/Discharge Documenting (check all that apply): Patient Departure All imaging exams completed and their final reports reviewed: No Studies - Discharge Plan Condition: Fair Disposition: HOME Patient Education Materials: Viral Syndrome (ED) Referrals: Rhianna Jamison MD [Primary Care Provider] - Additional Instructions: Your flu test was negative REcommend sudafed as directed for decongestant Recommend afrin nasal spray for 2-3 days, flonase nasal spray as directed until symptoms resolve Rest, fluids and ibuprofen as needed for pain/fever If symptoms persist or worsen, recommend follow up with your PCP or return to urgent care - Billing Disposition and Condition Condition: FAIR Disposition: Home
[2019-10-31 16:34] LABS: Influenza A Molecular Negative (Negative); Influenza B Molecular Negative (Negative)
== END 2019-10-31 16:41 | disposition home or self-care (01) ==
LOC: UCEAST 13:30
DX: B34.9 Viral infection, unspecified (principal); R09.81 Nasal congestion; R68.83 Chills (without fever); R52 Pain, unspecified; R11.2 Nausea with vomiting, unspecified; R19.7 Diarrhea, unspecified; R05 Cough; J02.9 Acute pharyngitis, unspecified; R09.89 Other specified symptoms and signs involving the circulatory and respiratory systems
CPT/HCPCS: 99211; G0463

== ENCOUNTER 2019-12-11 09:23 | Emergency (ER) | payer OTHER ==
--- NOTE | 2019-12-11 09:55 | UC ---
Lower Extremity/Ankle HPI - HPI Summary HPI Summary: 24 yo female presents with right leg pain. She tells me that she has a history of ataxia, tremors, and weakness -- is followed by neurology. Last night her "legs gave out" and she fell onto her right side twisting her right knee, ankle , and foot. She ambulates with a walker at baseline, but just started using this within the last week. Took tylenol which helped a little. Denies new numbness or tingling or weakness. No recent travel, fever, cough, or exposure to known COVID - History of Current Complaint Stated Complaint: ANKLE INJURY Time Seen by Provider: 12/11/19 09:54 Hx Obtained From: Patient Hx Last Menstrual Period: 10/11/19 Onset/Duration: Sudden Onset Severity Initially: Moderate Severity Currently: Moderate Pain Intensity: 5 Pain Scale Used: 0-10 Numeric Alleviating Factor(s): Rest Able to Bear Weight: Yes - Allergies/Home Medications Allergies/Adverse Reactions: Allergies Allergy/AdvReac Type Severity Reaction Status Date / Time No Known Allergies Allergy Verified 12/11/19 09:53 Home Medications: Home Medications Acetaminophen [Acetaminophen Extra Strength] 500 mg PO ONCE 12/11/19 [History Confirmed 12/11/19] PMH/Surg Hx/FS Hx/Imm Hx - Additional Past Medical History Additional PMH: Tremors Ataxia - Surgical History Surgical History: None Surgery Procedure, Year, and Place: 4 WISDOM TEETH. gallbladder 2019 - Family History Known Family History: Positive: Other - migraines Family History: Mother with full hysterectomy - Social History Lives: With Family Alcohol Use: Occasionally Alcohol Amount: MAYBE 1-2 DRINKS MONTH Substance Use Type: None Smoking Status (MU): Never Smoked Tobacco Have You Smoked in the Last Year: No - Immunization History Most Recent Influenza Vaccination: NOT THIS YEAR Most Recent Pneumonia Vaccination: n/a Review of Systems All Other Systems Reviewed And Are Negative: No Constitutional: Positive: Negative Skin: Positive: Negative Neurovascular: Positive: Negative Musculoskeletal: Positive: Other: - Right knee and ankle pain Neurological/Mental Status: Positive: Negative Psychological: Positive: Negative Physical Exam - Summary Physical Exam Summary: GENERAL: NAD. WDWN. No pain distress. SKIN: No rashes, sores, lesions, or open wounds. CHEST: No accessory muscle use. Breathing comfortably and in no distress. CV: Pulses intact PT and DP. Cap refill <2seconds MSK: RIGHT KNEE: Mild TTP about anterior aspect of knee. Strength 5/5. No edema or obvious bony deformities. No patella apprehension. Negative Walker, A/P drawer, Stephanie, and varus/valgus stress. RIGHT ANKLE: NTTP. FROM. Strength 5/ 5. No edema or obvious bony deformities. Negative talar tilt. No increased laxity. Negative Tyler test. RIGHT FOOT: NTTP. No edema. NEURO: Alert. Sensations intact and symmetric B/L LEs PSYCH: Age appropriate behavior. Triage Information Reviewed: Yes Vital Signs: Vital Signs: Temp Pulse Resp BP Pulse Ox 98.9 F 89 16 144/78 100 12/11/19 10:06 12/11/19 10:06 12/11/19 10:06 12/11/19 10:06 12/11/19 10:06 Vital Signs Reviewed: Yes Diagnostics - Radiology knee XR Radiology Interpretation Completed By: Radiologist Summary of Radiographic Findings: IMPRESSION: NO ACUTE OSSEOUS INJURY. IF SYMPTOMS PERSIST, RECOMMEND REPEAT IMAGING. ankle XR Radiology Interpretation Completed By: Radiologist Summary of Radiographic Findings: IMPRESSION: NO ACUTE OSSEOUS INJURY. IF SYMPTOMS PERSIST, RECOMMEND REPEAT IMAGING. Foot XR Radiology Interpretation Completed By: Radiologist Summary of Radiographic Findings: IMPRESSION: NO ACUTE OSSEOUS INJURY. IF SYMPTOMS PERSIST, RECOMMEND REPEAT IMAGING. Lower Extremity Course/Dx - Course Course Of Treatment: XRs as above and negative. Suspect contusion/sprain from the fall. Advised to RICE and continue to use her walker. Tylenol/ibuprofen as directed for discomfort. F/u with Orthopedics if symptoms do not improve - Differential Dx/Diagnosis Provider Diagnosis: Knee sprain, Ankle sprain Discharge ED - Sign-Out/Discharge Documenting (check all that apply): Patient Departure All imaging exams completed and their final reports reviewed: Yes - Discharge Plan Condition: Stable Disposition: HOME Patient Education Materials: Ankle Sprain (ED), Knee Sprain (ED) Referrals: Rhianna Jamison MD [Primary Care Provider] - Anju Arora MD [Medical Doctor] - If Needed Additional Instructions: The X-rays today were normal Please rest, ice, and elevate your knee and ankle to reduce pain and swelling. Use your walker If symptoms do not improve within 1 week please be rechecked by Orthopedics ( number below to schedule an appointment if needed) - Billing Disposition and Condition Condition: STABLE Disposition: Home
[2019-12-11 10:06] VITALS: BP 144/78
== END 2019-12-11 10:45 | disposition home or self-care (01) ==
LOC: UCEAST 09:23
DX: S83.91XA Sprain of unspecified site of right knee, initial encounter (principal); S93.401A Sprain of unspecified ligament of right ankle, initial encounter; X58.XXXA Exposure to other specified factors, initial encounter; Y92.9 Unspecified place or not applicable
CPT/HCPCS: 99211; G0463